=== PATIENT | male | born 2000 | race Caucasian/White ===

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

== ENCOUNTER 2023-05-22 07:52 | Emergency (ER) | payer OTHER, SELFPAY ==
--- NOTE | ~2023-05-22 | CT_ITS ---
EXAMINATION: CT ABDOMEN AND PELVIS WITH CONTRAST CLINICAL INFORMATION: Nausea and vomiting. Abdominal pain. COMPARISON: None available. TECHNIQUE: Multidetector volumetric images were obtained from the superior aspect of the liver through the pubic symphysis following administration 85 mL of Omnipaque 350 intravenous contrast. Sagittal and coronal reformatted images were obtained on the technologist's workstation. Oral contrast: No This CT examination was performed using dose optimization techniques as appropriate, variously including the following: *Automated exposure control *Adjustment of mA and/or kV according to patient size (this includes techniques or standardized protocols for targeted exams where dose is matched to indication/reason for exam; i.e. extremities or head) *Use of iterative reconstruction technique DLP: 235 mGy-cm FINDINGS: LUNG BASES: No pleural or pericardial effusion.. LIVER, GALLBLADDER, AND BILIARY TREE: The liver is normal in size and contour. No focal hepatic lesion or biliary ductal dilatation is present. The gallbladder is unremarkable with no evidence of radiopaque gallstones, gallbladder wall thickening, or obvious pericholecystic inflammatory changes. PANCREAS: No ductal dilatation. SPLEEN: Not enlarged. ADRENAL GLANDS: No adrenal mass. KIDNEYS AND URETERS: The kidneys are symmetric in size and enhancement. No hydronephrosis. No perinephric stranding. BLADDER: Decompressed and therefore incompletely evaluated. GASTROINTESTINAL TRACT: Small bowel loops are decompressed and therefore incompletely evaluated. There is diffuse colonic wall thickening with fluid in the distal colon and rectum. The appendix is not visualized. ABDOMINAL WALL: No significant hernia is appreciated. LYMPH NODES: No bulky lymphadenopathy. VASCULAR: Normal caliber abdominal aorta. PELVIC VISCERA: Unremarkable. OSSEOUS STRUCTURES: No destructive bone lesions CT/CT abdomen pelvis w IV con IMPRESSION: Diffuse colonic wall thickening with fluid in the distal colon and rectum. This most likely represents colitis. Infectious and inflammatory etiologies should be considered.
[2023-05-22 07:56] VITALS: BP 112/70; PULSE 91; RESP 18; TEMP 35.7; O2SAT 100; BMI 16.8
[2023-05-22] MEDS: Ondansetron ODT 4 MG TAB.RAPDIS SUBLINGUAL (08:03)
[2023-05-22 08:24] LABS: Hematocrit 49.8 % (42.0-52.0); Hemoglobin 17.5 g/dl (14.0-18.0); Mean Corpuscular HGB Conc 35.1 g/dl (31.0-36.0); Mean Corpuscular Hemoglobin 29.5 pg (27.0-33.0); Mean Corpuscular Volume 83.8 fL (80.0-98.0); Mean Platelet Volume 9.9 fL (9.4-12.4); Platelet Count 308 X10*3/uL (160-400); Red Blood Count 5.94 X10*6/uL (4.60-5.80); Red Cell Distribution Width 12.6 % (11.0-16.0); White Blood Count 22.7 X10*3/uL (4.8-10.8)
[2023-05-22 08:39] LABS: COVID-19 Test Negative (Negative); IDNOW Serial# 152EDE1D
[2023-05-22 08:42] LABS: Alanine Aminotransferase 16 U/L (0-40); Albumin Level 4.8 g/dL (3.5-5.0); Alkaline Phosphatase 116 U/L (39-117); Anion Gap 14 (12-20); Aspartate Amino Transferase 18 U/L (5-37); Band Neutrophils Percent 9 % (3-5); Bilirubin Direct 0.3 mg/dL (0.0-0.5); Bilirubin Total 0.8 mg/dL (0.0-1.0); Blood Urea Nitrogen 14 mg/dL (9-16); Calcium 9.8 mg/dL (8.4-10.2); Carbon Dioxide 26 mmol/L (22-29); Chloride 103 mmol/L (96-108); Creatinine Clr Calc Pharmacy 99.4; Estimated Glomerular Filt Rate > 60; Glucose Random 146 mg/dL (60-115); Lipase 15 U/L (8-78); Lymphocytes Absolute Manual 0.7 X10*3/uL (1.2-4.9); Lymphocytes Percent Manual 3 % (20-40); Monocytes Absolute Manual 0.9 X10*3/uL (0.1-1.2); Monocytes Percent Manual 4 % (2-11); Neutrophils Absolute Manual 21.1 X10*3/uL (2.0-8.3); Neutrophils Percent Manual 84 % (45-73); Potassium 3.9 mmol/L (3.3-5.1); Sodium 139 mmol/L (135-145); Total Protein 7.9 g/dL (6.5-8.0)
[2023-05-22 08:43] LABS: IDNOW Serial# 08D9AD1C
[2023-05-22 08:44] LABS: Influenza A Negative (Negative); Influenza B2 Negative (Negative); Platelet Estimate NORMAL (NORMAL); Platelet Morphology Comment NORMAL; RBC Morphology NORMAL; Toxic Vacuolation PRESENT
[2023-05-22 09:18] VITALS: BP 120/71; PULSE 85; RESP 20
[2023-05-22] MEDS: iohexoL 350 MG/ML 100 ML INFUS..BTL IV (09:40)
[2023-05-22 09:44] VITALS: BP 128/104; PULSE 108; RESP 24; TEMP 36.6; O2SAT 96
--- NOTE | 2023-05-22 09:51 | ED_ITS ---
HPI - General Adult General Chief complaint: Nausea/Vomiting/Diarrhea Stated complaint: vomiting Time Seen by Provider: 05/22/23 08:46 Source: patient Mode of arrival: ambulatory Limitations: no limitations History of Present Illness HPI narrative: 22 year old male hx of panic disorder presents w/ shaking, nausea, vomiting since last night after eating a steak and fries at [facility]. Patient reports he threw up all night and doesn't know how many times he has vomited. Friend who he is here with ate the same food and feels fine. Reports hes shaking and unclear why. He denies associated abdominal pain, fevers, chills, headache, vision changes, dizziness, weakness, cp, sob, hematemesis, diarrhea, melena, hematochezia. No sick contacts. Related Data Previous Rx's Medication Instructions Recorded ondansetron 4 mg disintegrating 4 mg PO Q6H PRN nausea and 05/22/23 tablet vomiting #14 tabs Allergies Allergy/AdvReac Type Severity Reaction Status Date / Time No Known Allergies Allergy Verified 05/22/23 07:59 [No Known Allergies*] Review of Systems 2 Review of Systems: Yes all other systems are reviewed and are negative [facility] Past Medical History Attestation statement: The following information was validated with the patient. Source: old records reviewed and nursing notes reviewed Social History Social History Smoked in Last 30 Days: No Use of substances other than those prescribed or required for medical reasons: No Advance Directives: No Physical Exam ED Vital Signs: Vital Signs - 24 hr 05/22/23 07:56 05/22/23 09:18 05/22/23 09:44 Temperature 96.2 F L 98 F Pulse Rate 91 85 108 H Respiratory Rate 18 20 24 H Blood Pressure 112/70 120/71 128/104 H Pulse Oximetry 100 96 Oxygen Delivery Method Room Air Room Air Room Air 05/22/23 10:20 Temperature Pulse Rate 97 Respiratory Rate 18 Blood Pressure 106/57 L Pulse Oximetry 93 Oxygen Delivery Method Room Air BMI result Body Mass Index 16.8 vss Appearance: Alert.? Oriented X3.? No acute distress.?Patient anxious appearing Head: Normocephalic, atraumatic, no step-offs or deformities Eyes: Pupils equal, round and reactive to light.? Neck: Normal inspection.? Neck supple.? CVS: Normal heart rate and rhythm.? Pulses normal.? Respiratory: No respiratory distress.? Breath sounds normal.? Abdomen: Soft and nontender.?Negative murphys, rosving and obturator Skin: Skin warm and dry.? Normal skin color.? Normal skin turgor.? Extremities: No lower extremity edema.? No calf ttp. 5/5 strength to bilateral upper and lower extremities Neuro: Oriented X 3.? No motor deficit.? No sensory deficit. CN 2-12 intact Course Reevaluation(s) Reevaluation #1: CBC with leukocytosis 22.7, and left shift, likely reactive secondary to nausea and vomiting. Chemistry unremarkable. Flu, COVID negative. CT of abdomen pending. Time: 10:04 Reevaluation #2: Patient is sleeping and no longer shaking. CT abdomen with diffuse colonic wall thickening with fluid in the distal colon and rectum most likely representing colitis. Infectious and inflammatory etiology should be considered. No visualization of the appendix however no pain overlying that area. Patient has not had any other episodes of nausea or vomiting. At this time patient will be discharged home. No indication for antibiotics at this time. As this is likely viral. Educated patient on diagnosis and treatment plan, answered all question, patient verbalizes understanding. At this time patient will be discharged home, advised to return with new or worsening symptoms. Educated on worrisome signs and symptoms and when to return. At this time I feel comfortable discharge home. Time: 10:46 Reevaluation #3: Discussed this case w/ attending no indication for atbx. Leukocytosis likely reactive secondary to nausea and vomiting. Unlikely acute bacterial colitis. Stool studies ordered. Medications Administered Discontinued Medications Generic Name Dose Route Start Last Admin Trade Name Freq PRN Reason Stop Dose Admin Iohexol 100 ml 05/22/23 09:40 05/22/23 09:40 Iohexol 350 Mg/Ml 100 Ml Infus..Btl IV 05/22/23 09:41 85 ml ONCE ONE Administration Lorazepam 1 mg 05/22/23 09:52 05/22/23 10:18 Lorazepam 2 Mg/Ml Vial IVPUSH 05/22/23 09:53 1 mg ONCE ONE Administration Ondansetron HCl 4 mg 05/22/23 08:00 05/22/23 08:03 Ondansetron Odt 4 Mg Tab.Rapdis SUBLINGUAL 05/22/23 08:01 4 mg ONCE ONE Administration Medical Decision Making Medical Decision Making [facility] Narrative: [id number] 22-year-old male presents with nausea and vomiting after eating steak. No associated abdominal pain. Reports he shaking. Physical exam benign however patient does appear anxious. Likely food poisoning vs gastroenteritis. Unlikely acute abdomen, pancreatitis, appendiciits, obstruction, diverticulitis cholecysitis. I do not suspect acute upper or lower GI bleed. Plan- labs, imaging Differential Diagnosis Differential Diagnoses: The differential diagnosis associated with the presentation includes Likely food poisoning vs gastroenteritis. Unlikely acute abdomen, pancreatitis, appendiciits, obstruction, diverticulitis cholecysitis. I do not suspect acute upper or lower GI bleed. Admission/Observation Consideration of admission/observation: Escalation of care including admission/observation considered unlikely Lab Data [facility] Lab Attestation statement: I reviewed the patient's lab results. 05/22/23 08:17 05/22/23 08:17 Labs: Lab Results 05/22/23 Range/Units 08:17 WBC 22.7 H (4.8-10.8) X10*3/uL RBC 5.94 H (4.60-5.80) X10*6/uL Hgb 17.5 (14.0-18.0) g/dl Hct 49.8 (42.0-52.0) % MCV 83.8 (80.0-98.0) fL MCH 29.5 (27.0-33.0) pg MCHC 35.1 (31.0-36.0) g/dl RDW 12.6 (11.0-16.0) % Plt Count 308 (160-400) X10*3/uL MPV 9.9 (9.4-12.4) fL Immature Gran % (Auto) Cancelled Neut % (Auto) Cancelled Lymph % (Auto) Cancelled [place] % (Auto) Cancelled Eos % (Auto) Cancelled Baso % (Auto) Cancelled Lymph # (Auto) Cancelled [place] # (Auto) Cancelled Eos # (Auto) Cancelled Baso # (Auto) Cancelled Abs Immat Gran (auto) Cancelled Absolute Neuts (auto) Cancelled Absolute Nucleated RBC 0.000 (0.0-0.012) X10*3/uL Nucleated RBC % (auto) 0.0 (0.0-0.2) /100WBC Neutrophils % (Manual) 84 H (45-73) % Band Neutrophils % 9 H (3-5) % Lymphocytes % (Manual) 3 L (20-40) % Monocytes % (Manual) 4 (2-11) % Abs Neuts (Manual) 21.1 H (2.0-8.3) X10*3/uL Lymphocytes # (Manual) 0.7 L (1.2-4.9) X10*3/uL Monocytes # (Manual) 0.9 (0.1-1.2) X10*3/uL Toxic Vacuolation PRESENT Platelet Estimate NORMAL (NORMAL) Plt Morphology Comment NORMAL RBC Morphology NORMAL Sodium 139 (135-145) mmol/L Potassium 3.9 (3.3-5.1) mmol/L Chloride 103 (96-108) mmol/L Carbon Dioxide 26 (22-29) mmol/L Anion Gap 14 (12-20) BUN 14 (9-16) mg/dL Creatinine 0.84 (0.5-1.4) mg/dL Estim Creat Clear Calc 99.4 Estimated GFR > 60 Random Glucose 146 H (60-115) mg/dL Calcium 9.8 (8.4-10.2) mg/dL Total Bilirubin 0.8 (0.0-1.0) mg/dL Direct Bilirubin 0.3 (0.0-0.5) mg/dL AST 18 (5-37) U/L ALT 16 (0-40) U/L Alkaline Phosphatase 116 (39-117) U/L Total Protein 7.9 (6.5-8.0) g/dL Albumin 4.8 (3.5-5.0) g/dL Lipase 15 (8-78) U/L COVID-19 (LETITIA) Negative (Negative) COVID-19 Clin Com See Note Influenza Type A (MERCEDES) Negative (Negative) Influenza Type B (MERCEDES) Negative (Negative) Influenza A & B Note See Note Independent Interpretation I performed an independent interpretation of an: CT Scan Radiology Impression Discussion of test interpretation with radiology: I have reviewed the radiologist's reading. Prescription Management I considered prescription management with: Other (antiemetics ) Chronic Conditions Patient?s care impacted by: Other (no known pmhx or surgeries ) Discharge Plan Discharge Clinical Impression: Nausea & vomiting Patient Disposition: Home, Self-Care Instructions: Acute Nausea and Vomiting (ED) Additional Instructions: Take your medications as prescribed. If you were prescribed antibiotics today, it is important that you take your medication to their entirety, do not skip any doses, do not finish them early. Follow-up with your primary care provider this week. Return to the emergency department with new or worsening symptoms. Such as fevers, chills, chest pain, shortness of breath, nausea, vomiting, dizziness, headache, vision changes, lethargy In case of emergency call 911 CT/CT abdomen pelvis w IV con IMPRESSION: Diffuse colonic wall thickening with fluid in the distal colon and rectum. This most likely represents colitis. Infectious and inflammatory etiologies should be considered. Prescriptions: New ondansetron 4 mg tablet,disintegrating 4 mg PO Q6H PRN (Reason: nausea and vomiting) Qty: 14 0RF Referrals: Genaro Franco MD [Primary Care Provider] - 2 days Stand Alone Forms: Work/School Release
[2023-05-22] MEDS: LORazepam 2 MG/ML VIAL 1 MG IVPUSH (10:18)
[2023-05-22 10:20] VITALS: BP 106/57; PULSE 97; RESP 18; O2SAT 93
== END 2023-05-22 11:32 | disposition home or self-care (01) ==
PROVIDERS: Emergency Provider Emergency Medicine; PCP Pediatrics
DX: R11.2 Nausea with vomiting, unspecified (principal); R19.7 Diarrhea, unspecified; R10.9 Unspecified abdominal pain; Z11.52 Encounter for screening for COVID-19; Z79.899 Other long term (current) drug therapy
CPT/HCPCS: 36415; 74177; 80053; 82248; 83690; 85007; 85027; 87502; 87635; 96374; 99284; J2060; Q9967